=== PATIENT | male | born 1990 | race American Indian/Alaskan Native ===

== ENCOUNTER 2022-04-17 04:27 | Emergency (ER) | payer BC ==
[2022-04-17] MEDS ORDERED: ONDANSETRON 4 MG/2 ML INJ IV ONE (06:26)
[2022-04-17] MEDS ORDERED: MORPHINE 4 MG/1 ML INJ IV ONE ×2 (06:26→08:26)
[2022-04-17] MEDS ORDERED: KETOROLAC 30 MG/1 ML INJ IV ONE (06:26)
[2022-04-17] MEDS ORDERED: SODIUM CHLORIDE 0.9% 1000 ML 1,000 ML IV ONE ×2 (06:26→07:58)
--- NOTE | 2022-04-17 06:51 | Emergency Department Report ---
ED Abdominal Pain HPI - General Chief Complaint: Abdominal Pain Stated Complaint: AB PAIN Time Seen by Provider: 04/17/22 06:16 Source: patient Mode of arrival: Ambulatory Limitations: No Limitations - History of Present Illness Initial Comments: 31-year-old male with no significant past medical or surgical history presents complaining of right lower quadrant abdominal pain, nausea, and vomiting since 9:30 PM last night. Pain is rated 5/10 in intensity constant, aching, worse with palpation. No alleviating factors reported. Patient denies fever, dysuria, hematuria, or flank pain. Severity scale (0 -10): 0 - Related Data Previous Rx's Medication Instructions Recorded Last Taken Type HYDROcodone/APAP 5-325 [[place] 1 each PO Q6HR PRN #20 tablet 04/17/22 Unknown Rx 5/325] Ketorolac [Toradol] 10 mg PO Q6H PRN #20 tab 04/17/22 Unknown Rx Ondansetron [Zofran Odt] 4 mg PO Q8HR PRN #20 tab.rapdis 04/17/22 Unknown Rx Tamsulosin [Flomax] 0.4 mg PO QDAY #10 cap 04/17/22 Unknown Rx Allergies Allergy/AdvReac Type Severity Reaction Status Date / Time No Known Allergies Allergy Unverified 04/17/22 04:30 ED Review of Systems ROS: Stated complaint: AB PAIN Other details as noted in HPI Comment: All other systems reviewed and negative ED Past Medical Hx - Medications Home Medications: Home Medications Medication Instructions Recorded Confirmed Last Taken Type HYDROcodone/APAP 5-325 [[place] 1 each PO Q6HR PRN #20 tablet 04/17/22 Unknown Rx 5/325] Ketorolac [Toradol] 10 mg PO Q6H PRN #20 tab 04/17/22 Unknown Rx Ondansetron [Zofran Odt] 4 mg PO Q8HR PRN #20 tab.rapdis 04/17/22 Unknown Rx Tamsulosin [Flomax] 0.4 mg PO QDAY #10 cap 04/17/22 Unknown Rx ED Physical Exam - General Limitations: No Limitations - Other Other exam information: General: No acute distress Head: Atraumatic Eyes: normal appearance ENT: Moist mucous membranes Neck: Normal appearance, no midline tenderness Chest: Clear to auscultation bilaterally CV: Regular rate and rhythm Abdomen: Soft, normal bowel sounds, right lower quadrant tenderness, nondistended, no rebound or guarding Back: Normal inspection Extremity: Normal inspection, full range of motion Neuro: Alert O x 3, no facial asymmetry, speech clear, no gross motor sensory deficit Psych: Appropriate behavior Skin: No rash ED Course Vital Signs 04/17/22 04/17/22 04/17/22 04:29 04:58 05:01 Temperature 99.3 F Pulse Rate 96 H Respiratory 20 Rate Blood Pressure 137/88 Blood Pressure 144/47 [Right] O2 Sat by Pulse 98 98 97 Oximetry 04/17/22 04/17/22 04/17/22 05:15 05:31 05:45 Temperature Pulse Rate 96 H 99 H Respiratory 16 23 Rate Blood Pressure 141/94 141/94 141/94 Blood Pressure [Right] O2 Sat by Pulse 98 100 97 Oximetry 04/17/22 04/17/22 04/17/22 05:47 06:01 06:15 Temperature Pulse Rate 95 H Respiratory 29 H 23 Rate Blood Pressure 141/94 141/94 Blood Pressure [Right] O2 Sat by Pulse 10 L 98 97 Oximetry 04/17/22 04/17/22 04/17/22 06:31 06:45 07:01 Temperature Pulse Rate Respiratory Rate Blood Pressure 141/94 141/94 132/70 Blood Pressure [Right] O2 Sat by Pulse 97 95 98 Oximetry 04/17/22 04/17/22 04/17/22 07:15 07:31 07:45 Temperature Pulse Rate Respiratory Rate Blood Pressure 132/70 132/70 132/70 Blood Pressure [Right] O2 Sat by Pulse 98 97 97 Oximetry 04/17/22 04/17/22 04/17/22 08:00 08:17 08:31 Temperature Pulse Rate Respiratory Rate Blood Pressure 132/70 Blood Pressure [Right] O2 Sat by Pulse 96 97 96 Oximetry 04/17/22 04/17/22 04/17/22 08:45 09:01 09:15 Temperature Pulse Rate Respiratory Rate Blood Pressure Blood Pressure [Right] O2 Sat by Pulse 97 98 96 Oximetry 04/17/22 09:23 Temperature Pulse Rate 68 Respiratory 16 Rate Blood Pressure Blood Pressure 121/73 [Right] O2 Sat by Pulse 100 Oximetry ED Medical Decision Making - Lab Data Result diagrams: 04/17/22 06:47 04/17/22 06:47 Lab Results 04/17/22 04/17/22 04/17/22 Range/Units 06:47 06:47 Unknown WBC 11.3 H (4.5-11.0) K/mm3 RBC 5.32 H (3.65-5.03) M/mm3 Hgb 13.8 (11.8-15.2) gm/dl Hct 43.1 (35.5-45.6) % MCV 81 L (84-94) fl MCH 26 L (28-32) pg MCHC 32 (32-34) % RDW 13.5 (13.2-15.2) % Plt Count 230 (140-440) K/mm3 Lymph % (Auto) 9.5 L (13.4-35.0) % Colbert % (Auto) 5.4 (0.0-7.3) % Eos % (Auto) 0.1 (0.0-4.3) % Baso % (Auto) 0.2 (0.0-1.8) % Lymph # (Auto) 1.1 L (1.2-5.4) K/mm3 Colbert # (Auto) 0.6 (0.0-0.8) K/mm3 Eos # (Auto) 0.0 (0.0-0.4) K/mm3 Baso # (Auto) 0.0 (0.0-0.1) K/mm3 Seg Neutrophils % 84.8 H (40.0-70.0) % Seg Neutrophils # 9.6 H (1.8-7.7) K/mm3 Sodium 140 (137-145) mmol/L Potassium 4.7 (3.6-5.0) mmol/L Chloride 102.7 (98-107) mmol/L Carbon Dioxide 28 (22-30) mmol/L Anion Gap 14 mmol/L BUN 16 (9-20) mg/dL Creatinine 1.6 H (0.8-1.3) mg/dL Estimated GFR 50 ml/min BUN/Creatinine Ratio 10 % Glucose 110 H (75-100) mg/dL Calcium 9.5 (8.4-10.2) mg/dL Total Bilirubin 0.30 (0.1-1.2) mg/dL AST 24 (5-40) units/L ALT 25 (7-56) units/L Alkaline Phosphatase 61 (35-129) units/L Total Protein 6.8 (6.3-8.2) g/dL Albumin 4.5 (3.9-5) g/dL Albumin/Globulin Ratio 2.0 % Urine Color Straw (Yellow) Urine Turbidity Clear (Clear) Specific [place] (Man) 1.015 (1.003-1.030) Ur Protein (Man) Negative (Negative) mg/dL Ur Ketones (Man) Negative (Negative) Ur Nitrite (Man) Negative (Negative) Ur Reducing Substances Not Reportable Urine Bilirubin (Man) Negative (Negative) Urine Ictotest Not Reportable Leukocyte Esterase (Man) Negative (Negative) Urine WBC (Auto) 1.0 (0.0-6.0) /HPF Urine RBC (Auto) 16.0 (0.0-6.0) /HPF U Epithel Cells (Auto) 2.0 (0-13.0) /HPF Urine RBC (Manual) 2+ (Negative) Urine Mucus Few /HPF - Radiology Data Radiology results: report reviewed CT ABDOMEN AND PELVIS WITH CONTRAST INDICATION / CLINICAL INFORMATION: rlq pain. TECHNIQUE: Axial CT images were obtained through the abdomen and pelvis after IV contrast. All CT scans at this location are performed using CT dose reduction for ALARA by means of automated expos ure control. COMPARISON: None available. FINDINGS: LOWER CHEST: No significant abnormality. LIVER: No significant abnormality. GALLBLADDER: No significant abnormality. BILE DUCTS: No significant abnormality. PANCREAS: No significant abnormality. SPLEEN: No significant abnormality. ADRENALS: No significant abnormality. RIGHT KIDNEY / URETER: 3 mm stone right ureter at L4 with mild distention of the collecting system. Mild pyelosinus backflow is noted. LEFT KIDNEY / URETER: No significant abnormality. STOMACH / SMALL BOWEL: No significant abnormality. COLON: No significant abnormality. APPENDIX: No significant abnormality. PERITONEUM: No free fluid. No free air. No fluid collection. LYMPH NODES: No significant adenopathy. VASCULAR STRUCTURES: No significant abnormality. URINARY BLADDER: No significant abnormality. REPRODUCTIVE ORGANS: No significant abnormality. ADDITIONAL FINDINGS: Small fat-containing umbilical hernia. SKELETAL SYSTEM: No significant abnormality. IMPRESSION: 1. 3 mm stone right ureter at L4 with relatively high-grade obstruction. 2. Small fat-containing umbilical hernia. - Medical Decision Making 31-year-old male presents to the hospital right lower quadrant pain, nausea, vomiting. ED work-up reveals 3 mm stone. Diagnosis of renal colic. No signs of infection. Creatinine mildly elevated 1.6 patient was informed and states that his creatinine was normal with recent checkup. He was informed to follow- up for repeat lab - Differential Diagnosis Appendicitis, biliary colic, UTI, colitis Critical Care Time: No Critical care attestation.: If time is entered above; I have spent that time in minutes in the direct care of this critically ill patient, excluding procedure time. ED Disposition Clinical Impression: Renal colic on right side, Renal insufficiency Disposition: HOME / SELF CARE / HOMELESS Is pt being admited?: No Does the pt Need Aspirin: No Condition: Stable Instructions: Renal Colic, [id number] Additional Instructions: Take the medication as prescribed. Follow-up with the urologist provided and your primary care doctor. Return if symptoms worsen as indicated by your discharge instructions. Follow-up with your doctor for reassessment of your kidney function Prescriptions: Tamsulosin [Flomax] 0.4 mg PO QDAY #10 cap HYDROcodone/APAP 5-325 [[place] 5/325] 1 each PO Q6HR PRN #20 tablet PRN Reason: Pain Ketorolac [Toradol] 10 mg PO Q6H PRN #20 tab PRN Reason: Pain Ondansetron [Zofran Odt] 4 mg PO Q8HR PRN #20 tab.rapdis PRN Reason: Nausea And Vomiting Referrals: KOSTAS DIALLO MD [Staff Physician] - 3-5 Days (Urologist) Time of Disposition: 10:37
[2022-04-17 07:27] LABS: Basophils % (Auto) 0.2 % (0.0-1.8); Eosinophils % (Auto) 0.1 % (0.0-4.3); Hematocrit 43.1 % (35.5-45.6); Hemoglobin 13.8 gm/dl (11.8-15.2); Lymphocytes # (Auto) 1.1 K/mm3 (1.2-5.4); Lymphocytes % (Auto) 9.5 % (13.4-35.0); Mean Corpuscular HGB Conc 32 % (32-34); Mean Corpuscular Volume 81 fl (84-94); Monocytes # (Auto) 0.6 K/mm3 (0.0-0.8); Monocytes % (Auto) 5.4 % (0.0-7.3); Platelet Count 230 K/mm3 (140-440); Red Blood Count 5.32 M/mm3 (3.65-5.03); Red Cell Distribution Width 13.5 % (13.2-15.2)
[2022-04-17 07:50] LABS: Albumin 4.5 g/dL (3.9-5); Calcium 9.5 mg/dL (8.4-10.2)
--- NOTE | 2022-04-17 08:35 | Cat Scan Report ---
CT ABDOMEN AND PELVIS WITH CONTRAST INDICATION / CLINICAL INFORMATION: rlq pain. TECHNIQUE: Axial CT images were obtained through the abdomen and pelvis after IV contrast. All CT sc ans at this location are performed using CT dose reduction for ALARA by means of automated exposure c ontrol. COMPARISON: None available. FINDINGS: LOWER CHEST: No significant abnormality. LIVER: No significant abnormality. GALLBLADDER: No significant abnormality. BILE DUCTS: No significant abnormality. PANCREAS: No significant abnormality. SPLEEN: No significant abnormality. ADRENALS: No significant abnormality. RIGHT KIDNEY / URETER: 3 mm stone right ureter at L4 with mild distention of the collecting system. M ild pyelosinus backflow is noted. LEFT KIDNEY / URETER: No significant abnormality. STOMACH / SMALL BOWEL: No significant abnormality. COLON: No significant abnormality. APPENDIX: No significant abnormality. PERITONEUM: No free fluid. No free air. No fluid collection. LYMPH NODES: No significant adenopathy. VASCULAR STRUCTURES: No significant abnormality. URINARY BLADDER: No significant abnormality. REPRODUCTIVE ORGANS: No significant abnormality. ADDITIONAL FINDINGS: Small fat-containing umbilical hernia. SKELETAL SYSTEM: No significant abnormality. IMPRESSION: 1. 3 mm stone right ureter at L4 with relatively high-grade obstruction. 2. Small fat-containing umbilical hernia. Signer Name: Akin Garcia MD Signed: 04/17/2022 8:31 AM Workstation Name: [email or web address]
[2022-04-17] MEDS ORDERED: HYDROmorphone 0.5 MG/0.5 ML INJ IV ONE (08:52)
[2022-04-17 09:35] VITALS: BP 121/73
[2022-04-17 09:42] LABS: Mucus,Urine FEW /HPF
[2022-04-17 10:26] LABS: Color,Urine Straw (Yellow)
== END 2022-04-17 11:00 | disposition home or self-care (01) ==
LOC: ED 04:27
DX: N23 Unspecified renal colic (principal); N28.9 Disorder of kidney and ureter, unspecified; Z79.899 Other long term (current) drug therapy
CPT/HCPCS: 36415; 74177; 80053; 81001; 85025; 96361; 96374; 96375; 99284; J1170; J1885; J2270; J2405; J7030; Q9967